=== PATIENT | male | born 1950 | race Caucasian/White ===

== ENCOUNTER → 2017-06-29 | Outpatient (CLI) | payer MEDICARE, OTHER ==
[~2017-06-29] MED LIST: ATEN-1 PO; CHOL10005 PO; EZE10 PO; LOR5/325 PO; SIRO1TAB4 PO
[2017-06-29 09:17] LABS: PLATELET COUNT, AUTOMATED 323 K/uL (150-450)
== END ==
LOC: LAB 08:43
PROVIDERS: ATTEND Nurse Practitioner Family
DX: Z48.23 Encounter for aftercare following liver transplant (principal); Z48.298 Encounter for aftercare following other organ transplant; Z94.4 Liver transplant status
CPT/HCPCS: 36415; 80195; 82040; 82247; 82310; 82374; 82435; 82565; 82947; 84075; 84132; 84155; 84295; 84450; 84460; 84520; 85025

== ENCOUNTER → 2017-09-27 | Outpatient (CLI) | payer MEDICARE, OTHER ==
[2017-09-27 11:07] LABS: PLATELET COUNT, AUTOMATED 340 K/uL (150-450)
== END ==
LOC: LAB 10:13
PROVIDERS: ATTEND Nurse Practitioner Family
DX: Z48.23 Encounter for aftercare following liver transplant (principal); Z94.4 Liver transplant status
CPT/HCPCS: 36415; 80195; 82040; 82247; 82310; 82374; 82435; 82565; 82947; 84075; 84132; 84155; 84295; 84450; 84460; 84520; 85025

== ENCOUNTER → 2017-11-29 | Outpatient (CLI) | payer MEDICARE, OTHER ==
[2017-11-29 09:15] LABS: PLATELET COUNT, AUTOMATED 332 K/uL (150-450)
== END ==
LOC: LAB 08:19
PROVIDERS: ATTEND Nurse Practitioner Family
DX: Z94.4 Liver transplant status (principal); Z48.23 Encounter for aftercare following liver transplant; Z92.25 Personal history of immunosuppression therapy; Z48.298 Encounter for aftercare following other organ transplant
CPT/HCPCS: 36415; 80195; 82040; 82247; 82310; 82374; 82435; 82565; 82947; 84075; 84132; 84155; 84295; 84450; 84460; 84520; 85025

== ENCOUNTER → 2018-02-11 | Outpatient (CLI) | payer MEDICARE, OTHER ==
[2018-02-11 08:02] LABS: PLATELET COUNT, AUTOMATED 339 K/uL (150-450)
== END ==
LOC: LAB 07:41
PROVIDERS: ATTEND Nurse Practitioner Family
DX: Z94.4 Liver transplant status (principal); Z48.23 Encounter for aftercare following liver transplant; Z92.25 Personal history of immunosuppression therapy; Z48.298 Encounter for aftercare following other organ transplant
CPT/HCPCS: 36415; 80195; 82040; 82247; 82310; 82374; 82435; 82565; 82947; 84075; 84132; 84155; 84295; 84450; 84460; 84520; 85025

== ENCOUNTER → 2018-04-12 | Outpatient (CLI) | payer MEDICARE, OTHER ==
[2018-04-12 10:01] LABS: PLATELET COUNT, AUTOMATED 356 K/uL (150-450)
[2018-04-12 10:23] LABS: LDL CHOLESTEROL 109 mg/dl
== END ==
LOC: LAB 09:23
PROVIDERS: ATTEND Nurse Practitioner Family
DX: Z48.23 Encounter for aftercare following liver transplant (principal); Z48.298 Encounter for aftercare following other organ transplant; Z94.4 Liver transplant status
CPT/HCPCS: 36415; 80195; 82040; 82247; 82310; 82374; 82435; 82465; 82565; 82570; 82947; 83718; 84075; 84132; 84155; 84156; 84295; 84450; 84460; 84478; 84520; 85025

== ENCOUNTER → 2018-06-13 | Outpatient (CLI) | payer MEDICARE, OTHER ==
[2018-06-13 11:10] LABS: PLATELET COUNT, AUTOMATED 328 K/uL (150-450)
== END ==
LOC: LAB 10:49
PROVIDERS: ATTEND Nurse Practitioner Family
DX: Z48.298 Encounter for aftercare following other organ transplant (principal); Z48.23 Encounter for aftercare following liver transplant; Z94.4 Liver transplant status; Z92.25 Personal history of immunosuppression therapy
CPT/HCPCS: 36415; 80195; 82040; 82247; 82310; 82374; 82435; 82565; 82947; 84075; 84132; 84155; 84295; 84450; 84460; 84520; 85025

== ENCOUNTER → 2018-08-10 | Outpatient (CLI) | payer MEDICARE, OTHER ==
[2018-08-10 08:32] LABS: PLATELET COUNT, AUTOMATED 339 K/uL (150-450)
[2018-08-10 08:40] LABS: LDL CHOLESTEROL 105 mg/dl
== END ==
LOC: LAB 08:07
PROVIDERS: ATTEND Nurse Practitioner Family
DX: Z48.23 Encounter for aftercare following liver transplant (principal); Z94.4 Liver transplant status; Z92.25 Personal history of immunosuppression therapy; Z48.298 Encounter for aftercare following other organ transplant
CPT/HCPCS: 36415; 80195; 82040; 82247; 82310; 82374; 82435; 82465; 82565; 82570; 82947; 83718; 84075; 84132; 84155; 84156; 84295; 84450; 84460; 84478; 84520; 85025

== ENCOUNTER → 2018-10-11 | Outpatient (CLI) | payer MEDICARE, OTHER ==
[2018-10-11 09:59] LABS: PLATELET COUNT, AUTOMATED 331 K/uL (150-450)
== END ==
LOC: LAB 09:07
PROVIDERS: ATTEND Nurse Practitioner Family
DX: Z94.4 Liver transplant status (principal); Z48.23 Encounter for aftercare following liver transplant; Z92.25 Personal history of immunosuppression therapy; Z48.298 Encounter for aftercare following other organ transplant
CPT/HCPCS: 36415; 80195; 82040; 82247; 82310; 82374; 82435; 82565; 82947; 84075; 84132; 84155; 84295; 84450; 84460; 84520; 85025

== ENCOUNTER → 2018-12-12 | Outpatient (CLI) | payer MEDICARE, OTHER ==
[2018-12-12 09:09] LABS: PLATELET COUNT, AUTOMATED 314 K/uL (150-450)
== END ==
LOC: LAB 08:46
PROVIDERS: ATTEND Nurse Practitioner Family
DX: Z48.23 Encounter for aftercare following liver transplant (principal); Z94.4 Liver transplant status; Z48.298 Encounter for aftercare following other organ transplant
CPT/HCPCS: 36415; 80195; 82040; 82247; 82310; 82374; 82435; 82565; 82947; 84075; 84132; 84155; 84295; 84450; 84460; 84520; 85025